=== PATIENT | female | born 1990 | race African-American/Black ===

== ENCOUNTER 2019-10-11 09:19 | Emergency (ER) | payer SELFPAY ==
[~2019-10-11] VITALS: Ht 162.6 cm; Wt 65.5 kg
[~2019-10-11 09:19] MED LIST: CYCL5TAB PO; DOCU-109 PO; FLUC150T PO; HYDR30CR61 TP; MELO7.5T5 PO; METR500T PO; ONDA4TAB7 PO; PERM60CR12 TP; TRAM50TA PO
--- NOTE | 2019-10-11 10:07 | PHYS DOC ---
Past Medical History Past Medical History: IBS, Other Additional Past Medical Histor: IBS, chronic back pain Past Surgical History: Appendectomy Smoking Status: Never Smoker Alcohol Use: Occasionally Drug Use: Marijuana General Adult EDM: Chief Complaint: OVERDOSE HPI: HPI: Patient is a 28-year-old female with substance abuse issues who presents after she took several tizanidine to help her relax. She adamantly denies suicidal ideation. She states she has done this before. She states her friend is upset that she is a drug addict and called 911. Patient does not want any further testing believes that she will be okay. She adamantly denies taking any other substance such as Tylenol aspirin pain medication or anxiolytics. [] Review of Systems: Review of Systems: Constitutional: Denies fever or chills. [] Eyes: Denies change in visual acuity. [] HENT: Denies nasal congestion or sore throat. [] Respiratory: Denies cough or shortness of breath. [] Cardiovascular: Denies chest pain or edema. [] GI: Denies abdominal pain, nausea, vomiting, bloody stools or diarrhea. [] : Denies dysuria. [] Musculoskeletal: Denies back pain or joint pain. [] Integument: Denies rash. [] Neurologic: Denies headache, focal weakness or sensory changes. [] Endocrine: Denies polyuria or polydipsia. [] Lymphatic: Denies swollen glands. [] Psychiatric: Reports anxiety] Heart Score: Risk Factors: Risk Factors: DM, Current or recent (<one month) smoker, HTN, HLP, family history of CAD, obesity. Risk Scores: Score 0 - 3: 2.5% MACE over next 6 weeks - Discharge Home Score 4 - 6: 20.3% MACE over next 6 weeks - Admit for Clinical Observation Score 7 - 10: 72.7% MACE over next 6 weeks - Early Invasive Strategies Allergies: Allergies: Allergies Coded Allergies Type Severity Reaction Last Updated Verified No Known Drug Allergies 09/12/15 No Physical Exam: PE: Constitutional: Well developed, well nourished, no acute distress, non-toxic appearance. [] HENT: Normocephalic, atraumatic, bilateral external ears normal, oropharynx moist, no oral exudates, nose normal. [] Eyes: PERRLA, EOMI, conjunctiva normal, no discharge. [] Neck: Normal range of motion, no tenderness, supple, no stridor. [] Cardiovascular:Heart rate regular rhythm, no murmur [] Lungs & Thorax: Bilateral breath sounds clear to auscultation [] Abdomen: Bowel sounds normal, soft, no tenderness, no masses, no pulsatile masses. [] Skin: Warm, dry, no erythema, no rash. [] Back: No tenderness, no CVA tenderness. [] Extremities: No tenderness, no cyanosis, no clubbing, ROM intact, no edema. [] Neurologic: Alert and oriented X 3, normal motor function, normal sensory function, no focal deficits noted. [] Psychologic: Anxious [] EKG: EKG: [] Radiology/Procedures: Radiology/Procedures: [] Course & Med Decision Making: Course & Med Decision Making Pertinent Labs and Imaging studies reviewed. (See chart for details) ED course: Evaluation reveals a 28-year-old awake alert oriented conversational 28-year-old female who is feeling no ill effects from the extra doses of muscle relaxer that she took. She wishes to leave AMA. The risks of this were discussed with her she specifically asked me if this could be life-threatening and I told her that it could and she elected to leave anyway. [] Patient decided to stay in the emergency department after all. She was given 1 L of IV fluids and laboratory studies were monitored all of which were unremarkable. I consulted Isaias from the psychiatric assessment team who was able to secure a walk-in appointment for her at [facility]. She will be discharged in the care of her grandfather. Frandy Disclaimer: Frandy Disclaimer: This electronic medical record was generated, in whole or in part, using a voice recognition dictation system. Departure Departure Impression: Primary Impression: Medication overdose Qualified Codes: T50.904A - Poisoning by unspecified drugs, medicaments and biological substances, undetermined, initial encounter Disposition: 01 HOME, SELF-CARE Condition: STABLE Referrals: NO PCP (PCP) Patient Instructions: Overdose, Adult Additional Instructions: Follow through with your outpatient visit as set up by Isaias from our psychiatric assessment team Justicifation of Admission Dx: Justifications for Admission: Justification of Admission Dx: No RYAN CUMMINS DO Oct 11, 2019 10:07
[2019-10-11] MEDS ORDERED: IV NORMAL SALINE 1000ML BAG 1,000 ML IV ONE (10:30)
[2019-10-11 10:58] LABS: BASO % 0 % (0-3); EOS % 0 % (0-3); HEMATOCRIT 34.2 % (36.0-47.0); HEMOGLOBIN 11.2 g/dL (12.0-15.5); LYMPH # 1.4 x10^3/uL (1.0-4.8); LYMPH % 13 % (24-48); MEAN CORPUSCULAR HEMOGLOBIN 27 pg (25-35); MEAN CORPUSCULAR HGB CONC 33 g/dL (31-37); MEAN CORPUSCULAR VOLUME 81 fL (79-100); MONO # 0.4 x10^3/uL (0.0-1.1); MONO % 4 % (0-9); NEUT # 8.9 x10^3/uL (1.8-7.7); NEUT % 83 % (31-73); PLATELET COUNT 300 x10^3/uL (140-400); RED CELL DISTRIBUTION WIDTH 18.6 % (11.5-14.5); WHITE BLOOD COUNT 10.8 x10^3/uL (4.0-11.0)
[2019-10-11 11:01] LABS: BILIRUBIN,URINE NEGATIVE (NEG); CLARITY,URINE CLEAR; COLOR,URINE AMBER; NITRITE,URINE NEGATIVE (NEG); PH,URINE 5.5 (<5.0-8.0); PROTEIN,URINE NEGATIVE (NEG-TRACE); UROBILINOGEN,URINE 0.2 mg/dL (0.2 mg/dL)
[2019-10-11 11:14] LABS: BARBITURATES NEG (NEG); BENZODIAZEPINES NEG (NEG); CANNABINOIDS POS (NEG); COCAINE POS (NEG); METHADONE NEG (NEG); OPIATES NEG (NEG); PHENCYCLIDINE NEG (NEG)
[2019-10-11 11:17] LABS: AMPHETAMINE/METHAMPHETAMINE NEG (NEG)
[2019-10-11 11:20] LABS: SQUAMOUS EPITHELIAL CELL,UR OCC /LPF
[2019-10-11 11:21] LABS: BACTERIA,URINE 0 /HPF (0-FEW); RBC,URINE >40 /HPF (0-2); WBC,URINE 0 /HPF (0-4)
[2019-10-11 11:37] LABS: CALCIUM 8.1 mg/dL (8.5-10.1); CREATININE 0.7 mg/dL (0.6-1.0); GFR 119.7; POTASSIUM 4.1 mmol/L (3.5-5.1)
[2019-10-11 11:42] LABS: ALBUMIN 3.1 g/dL (3.4-5.0); ALBUMIN/GLOBULIN RATIO 0.7 (1.0-1.7); MAGNESIUM 1.9 mg/dL (1.8-2.4); TOTAL BILIRUBIN 0.4 mg/dL (0.2-1.0); TOTAL PROTEIN 7.4 g/dL (6.4-8.2)
[2019-10-11 11:53] LABS: ACETAMIN < 2 mcg/ml (10-30); ETHANOL 63 mg/dL (0-10); SALIC 3.6 mg/dL (2.8-20.0)
--- NOTE | 2019-10-12 08:12 | EKG ---
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
[2019-10-12 11:39] VITALS: BP 105/55
== END 2019-10-11 12:35 | disposition home or self-care (01) ==
LOC: ER 09:19
DX: T42.8X1A Poisoning by antiparkinsonism drugs and other central muscle-tone depressants, accidental (unintentional), initial encounter (principal); G89.29 Other chronic pain; F12.90 Cannabis use, unspecified, uncomplicated; F19.10 Other psychoactive substance abuse, uncomplicated; Z90.89 Acquired absence of other organs; Y92.89 Other specified places as the place of occurrence of the external cause
CPT/HCPCS: 36415; 80053; 80307; 80329; 81001; 83735; 85025; 93005; 96360; 99284; G0480; J7030